=== PATIENT | female | born 1945 | race Caucasian/White ===

== ENCOUNTER 2016-12-09 15:06 | Observation (INO) ==
[2016-12-09] MEDS: 0.9 % Sodium Chloride 1,000 ML IVC SCH ×4 (15:44→20:20)
--- NOTE | 2016-12-09 15:48 | Emergency Department Note ---
Disposition Clinical Impression: Urinary tract infection Qualifiers: Urinary tract infection type: acute cystitis Hematuria presence: without hematuria Qualified Code(s): N30.00 - Acute cystitis without hematuria Fever Qualifiers: Fever type: unspecified Qualified Code(s): R50.9 - Fever, unspecified Disposition: Admitted As Inpatient Condition: Good Referrals: Jolly Aponte, [employer] [Primary Care Provider] - Forms: ED Satisfaction Letter Time of Disposition: 18:20 Fall HPI - General Chief Complaint: ED Fall Stated Complaint: fall, legs shaking, jerking Time Seen by Provider: 12/09/16 15:30 Source: patient Mode of arrival: EMS Limitations: no limitations Nursing Notes Reviewed: Yes Vital Signs Reviewed: Yes - History of Present Illness HPI Narrative: 71-year-old white female presents via squad after falling in her kitchen. She states she has felt bad for 5 days. She has felt weak and lightheaded. She states several times she felt like she was going to "fall out". She states today while she was walking her kitchen she did "fall out". When asked if she was unconscious, she says she thinks so. She remembers feeling weak, lightheaded, and dizzy. They treated her back when she fell and has some pain in her lumbar area. He has had fever for a couple days, she has not documented a fever at home. She denies a cough. No abdominal pain. No vomiting or diarrhea. No frequency or urgency. Pt Subjective Complaint: fall Onset (ago): Just [employer] SUPPORT [employer]IST Fall From: standing Fall Witnessed: no Place Fall Occurred: home Loss of Consciousness: unsure Prolonged Down Time?: no Symptoms Prior to Fall: lightheadedness, dizziness Context: unknown Location of injury: back Severity: moderate Quality: sharp Associated symptoms (after fall): Reports: headache, weakness - Related Data Home Medications Medication Instructions Recorded Confirmed Aspirin 81 mg PO DAILY 05/02/15 12/09/16 Cetirizine HCl [Zyrtec] 10 mg PO DAILY 05/02/15 12/09/16 Citalopram [CeleXA] 20 mg PO DAILY 05/02/15 12/09/16 Levothyroxine [Synthroid] 100 mcg PO 0630 05/02/15 12/09/16 Meclizine [Antivert] 25 mg PO TID PRN 05/02/15 12/09/16 Nitroglycerin 1 tab SL PRN PRN 05/02/15 12/09/16 Oxybutynin [Ditropan] 5 mg PO BID 05/02/15 12/09/16 Pravastatin Sodium [Pravachol] 80 mg PO HS 05/02/15 12/09/16 Pregabalin [Lyrica] 50 mg PO BID 05/02/15 12/09/16 Ranitidine HCl [Zantac] 150 mg PO BID 05/02/15 12/09/16 Ticagrelor [Brilinta] 90 mg PO BID 05/02/15 12/09/16 TraMADol [Ultram] 50 mg PO Q6HR 05/02/15 12/09/16 Cholecalciferol (Vitamin D3) 1,000 unit PO DAILY 09/24/15 12/09/16 [Vitamin D] Oxygen 2 l .ROUTE AD 09/24/15 12/09/16 Previous Rx's Medication Instructions Recorded Pantoprazole Sodium [Protonix] 20 mg PO DAILY #30 tab 09/13/16 Clindamycin HCl [Cleocin HCl] 300 mg PO QID #40 cap 10/16/16 DiphenhydraMINE [Benadryl] 25 mg PO Q4HR #30 capsule 10/16/16 Allergies Allergy/AdvReac Type Severity Reaction Status Date / Time budesonide [From Symbicort] Allergy Swelling Verified 12/09/16 15:07 of Lip/Tongue/Throat carvedilol [From Coreg] Allergy Swelling Verified 12/09/16 15:07 of Lip/Tongue/Throat cephalexin [From Keflex] Allergy Swelling Verified 12/09/16 15:07 of Lip/Tongue/Throat ciprofloxacin [From Cipro] Allergy Anaphylaxis Verified 12/09/16 15:07 Formoterol [From Symbicort] Allergy Swelling Verified 12/09/16 15:07 of Lip/Tongue/Throat gabapentin [From Neurontin] Allergy Swelling Verified 12/09/16 15:07 of Lip/Tongue/Throat lisinopril Allergy Headache Verified 12/09/16 15:07 shellfish derived Allergy Anaphylaxis Verified 12/09/16 15:07 Sulfa (Sulfonamide Allergy Hives Verified 12/09/16 15:07 Antibiotics) sulfamethoxazole Allergy Hives Verified 12/09/16 15:07 [From Bactrim] trimethoprim [From Bactrim] Allergy Hives Verified 12/09/16 15:07 venom-honey bee Allergy Anaphylaxis Verified 12/09/16 15:07 [bee venom (honey bee)] IVP DYE Allergy Swelling Uncoded 12/09/16 15:07 of Lip/Tongue/Throat All systems ED: reviewed and negative except as stated. Constitutional: Reports: fever, chills Eyes: Denies: eye discharge (Subjective), vision change ENT ED: Denies: ear pain, throat pain Cardiovascular: Denies: chest pain Respiratory: Denies: cough, dyspnea, wheezes Gastrointestinal: Denies: abdominal pain, nausea, vomiting, diarrhea Genitourinary: Denies: urgency, dysuria, frequency Musculoskeletal: Reports: back pain. Denies: neck pain Integumentary: Denies: rash Neurological: Reports: headache (Earlier today, none now.), weakness. Denies: numbness, paresthesias Fall PMH - Past Medical History Medical history: Reports: asthma, CVA, fibromyalgia, hyperlipidemia, myocardial infarction, thyroid disease, TIA Surgical history: Reports: angioplasty/stent, cholecystectomy, JODY/BSO Psychiatric history: Reports: depression - Social History Smoking Status: Never smoker Alcohol use: Reports: none Drug use: Reports: none Physical Exam - General Limitations: no limitations General appearance: alert, in no apparent distress - Head Head exam: atraumatic, normocephalic - Eye Eye exam: Present: PERRL, EOMI. Absent: scleral icterus, conjunctival injection - ENT ENT exam: normal oropharynx, mucous membranes moist, TM's normal bilaterally - Neck Neck exam: Present: normal inspection, full ROM, trachea midline. Absent: tenderness, meningismus, lymphadenopathy - Chest Chest inspection: Present: normal inspection, symmetric chest wall rise. Absent : tenderness - Respiratory Respiratory exam: Present: normal lung sounds bilaterally. Absent: respiratory distress, wheezes - Cardiovascular Cardiovascular exam: Present: normal rhythm, tachycardia, normal heart sounds - Abdominal Exam Abdominal exam: Present: soft, Non-Tender - Extremities Exam Extremities exam: Present: normal inspection, full ROM, normal capillary refill. Absent: tenderness - Back Exam Back exam: Present: tenderness (Mid and lower lumbar and the midline). Absent: CVA tenderness (R), CVA tenderness (L), straight leg raise (R), straight leg raise (L) - Neurological Exam Neurological exam: Present: alert, oriented X3, CN II-XII intact. Absent: motor sensory deficit - Psychiatric Psychiatric exam: Present: normal affect, normal mood - Skin Skin exam: Present: warm, dry, intact, normal color Course Vital Signs Temperature 103.8 F H 12/09/16 15:08 Pulse Rate 107 12/09/16 15:08 Respiratory Rate 20 12/09/16 15:08 O2 Sat by Pulse Oximetry 93 12/09/16 15:08 Temperature 99.5 F 12/09/16 15:58 Pulse Rate 86 12/09/16 17:42 Respiratory Rate 20 12/09/16 17:42 Blood Pressure 125/73 12/09/16 17:42 O2 Sat by Pulse Oximetry 92 12/09/16 17:42 Oxygen Delivery Oxygen Delivery Nasal Cannula Fall - MDM Narrative Medical decision making narrative: Near syncope or syncope secondary to anemia, sepsis, febrile illness, cardiac arrhythmia, dehydration, electrolyte abnormality. There is no evidence of sepsis, her lactic acid is normal. Her tachycardia improved with treatment of her fever. She does have urinary tract infection. Due to her multiple antibiotic allergies we used gentamicin. I discussed the case with the hospitalist, Dr. Bianchi. He has accepted the patient for admission. Her history is not clear that she actually ever had a syncopal episode. It sounds as if she was weak and dizzy. She remembers all the events of the nearly passing out or falling. She has no acute fractures or injuries to her lumbar spine. She has significant degenerative disease and spinal stenosis, but none of these are acute findings. - Lab Data Lab results reviewed: Yes I reviewed the patient's lab results. Result diagrams: 12/09/16 16:05 12/09/16 16:05 Lab Results 12/09/16 12/09/16 12/09/16 Range/Units 16:05 16:05 16:05 WBC 8.6 (4.3-11.1) K/mcL RBC 4.08 (3.82-4.97) M/mcL Hgb 12.3 (11.5-15.4) g/dL Hct 36.3 (35.3-44.9) % MCV 89.0 (83.0-100.0) fL MCH 30.1 (28.0-33.3) pg MCHC 33.9 (31.6-35.5) g/dL RDW 13.3 (11.5-14.5) % Plt Count 195 (140-400) K/mcL MPV 10.3 (9.4-12.4) fL Immature Gran % 0.3 (0-4) % Seg Neutrophils % 74.1 % Lymphocytes % 12.6 % Monocytes % 11.9 % Eosinophils % 0.6 % Basophils % 0.5 % Neutrophils # 6.4 (1.6-8.9) K/mcL Lymphocytes # 1.1 (0.6-4.6) K/mcL Monocytes # 1.0 (0.0-1.3) K/mcL Eosinophils # 0.1 (0.0-0.6) K/mcL Basophils # 0.0 (0.0-0.2) K/mcL PT (9.4-12.1) Seconds INR VBG Lactic Acid (0.5-2.2) mmol/L Sodium 135 L (136-145) mEq/L Potassium 4.1 (3.5-4.5) mEq/L Chloride 101 (98-109) mEq/L Carbon Dioxide 24 (19-29) mEq/L BUN 18 (7-20) mg/dL Creatinine 1.17 H (0.57-1.11) mg/dL Est GFR ( Amer) 55 L (> 60) Est GFR (Non-Af Amer) 45 L (> 60) BUN/Creatinine Ratio 15 (6-26) Glucose 114 H (70-99) mg/dL Calculated Osmolality 283 (280-300) Calcium 8.9 (8.6-10.8) mg/dL Total Bilirubin 0.6 (0.2-1.2) mg/dL AST 22 (5-34) Units/L ALT 21 (0-55) Units/L Alkaline Phosphatase 63 (38-126) Units/L Troponin I 0.03 (0-0.03) ng/mL Serum Total Protein 7.3 (6.0-8.3) g/dL Albumin 3.4 L (3.5-5.0) g/dL Globulin 3.9 H (2.4-3.5) g/dL Albumin/Globulin Ratio 0.9 L (1.1-2.2) Urine Color (Yellow) Urine Clarity (Clear) Urine pH (5.0-8.0) pH Units Ur Specific [place] (1.010-1.025) Urine Protein (Neg-Trace) mg/dL Urine Glucose (UA) (Normal) mg/dL Urine Ketones (Negative) mg/dL Urine Blood (Negative) Urine Nitrite (Negative) Urine Bilirubin (Negative) Urine Urobilinogen (Normal) mg/dL Ur Leukocyte Esterase (Negative) Urine Microscopic RBC (0-3) per hpf Urine Microscopic WBC (0-3) per hpf Ur Squamous Epith Cells (None-Few) per lpf Ur Renal Epithelial Cell (None-Few) per hpf Urine Bacteria (None-Few) per hpf Ur Culture Indicated? (NO) 12/09/16 12/09/16 12/09/16 Range/Units 16:05 16:05 16:20 WBC (4.3-11.1) K/mcL RBC (3.82-4.97) M/mcL Hgb (11.5-15.4) g/dL Hct (35.3-44.9) % MCV (83.0-100.0) fL MCH (28.0-33.3) pg MCHC (31.6-35.5) g/dL RDW (11.5-14.5) % Plt Count (140-400) K/mcL MPV (9.4-12.4) fL Immature Gran % (0-4) % Seg Neutrophils % % Lymphocytes % % Monocytes % % Eosinophils % % Basophils % % Neutrophils # (1.6-8.9) K/mcL Lymphocytes # (0.6-4.6) K/mcL Monocytes # (0.0-1.3) K/mcL Eosinophils # (0.0-0.6) K/mcL Basophils # (0.0-0.2) K/mcL PT 11.8 (9.4-12.1) Seconds INR 1.1 VBG Lactic Acid 0.9 (0.5-2.2) mmol/L Sodium (136-145) mEq/L Potassium (3.5-4.5) mEq/L Chloride (98-109) mEq/L Carbon Dioxide (19-29) mEq/L BUN (7-20) mg/dL Creatinine (0.57-1.11) mg/dL Est GFR ( Amer) (> 60) Est GFR (Non-Af Amer) (> 60) BUN/Creatinine Ratio (6-26) Glucose (70-99) mg/dL Calculated Osmolality (280-300) Calcium (8.6-10.8) mg/dL Total Bilirubin (0.2-1.2) mg/dL AST (5-34) Units/L ALT (0-55) Units/L Alkaline Phosphatase (38-126) Units/L Troponin I (0-0.03) ng/mL Serum Total Protein (6.0-8.3) g/dL Albumin (3.5-5.0) g/dL Globulin (2.4-3.5) g/dL Albumin/Globulin Ratio (1.1-2.2) Urine Color Light Yellow (Yellow) Urine Clarity Slightly Cloudy A (Clear) Urine pH 6.5 (5.0-8.0) pH Units Ur Specific [place] 1.010 (1.010-1.025) Urine Protein Negative (Neg-Trace) mg/dL Urine Glucose (UA) Normal (Normal) mg/dL Urine Ketones Negative (Negative) mg/dL Urine Blood Trace-intact H (Negative) Urine Nitrite Positive A (Negative) Urine Bilirubin Negative (Negative) Urine Urobilinogen Normal (Normal) mg/dL Ur Leukocyte Esterase Small H (Negative) Urine Microscopic RBC 0-3 (0-3) per hpf Urine Microscopic WBC 30-50 H (0-3) per hpf Ur Squamous Epith Cells Few (None-Few) per lpf Ur Renal Epithelial Cell Moderate H (None-Few) per hpf Urine Bacteria Many H (None-Few) per hpf Ur Culture Indicated? YES A (NO) - Radiology Data Radiology results reviewed: Yes I reviewed the patient's radiology results. ITS Impressions Chest X-Ray 12/09/16 15:38 IMPRESSION: No acute process. D/ / Familia Champagne MD / Familia Champagne MD Interpreting Provider: Familia Champagne MD Head CT 12/09/16 15:38 IMPRESSION: 1. Stable head CT. No acute intracranial abnormality. 2. Stable ventriculomegaly which is out of proportion to the degree of brain parenchymal volume loss. Findings raise the possibility for underlying normal pressure hydrocephalus for which clinical correlation is recommended. D/ / Vasile Graham MD / Vasile Graham MD Interpreting Provider: Vasile Graham MD Lumbar Spine CT 12/09/16 15:38 IMPRESSION: 1. No acute finding in the lumbar spine. 2. Severe spinal canal stenosis at L3-4 and L4-5 with additional degenerative changes described above. D/ / Luis Crespo MD / Luis Crespo MD Interpreting Provider: Luis Crespo MD
[2016-12-09 16:14] LABS: Basophils % 0.5 %; Eosinophils # 0.1 K/mcL (0.0-0.6); Eosinophils % 0.6 %; Hematocrit 36.3 % (35.3-44.9); Hemoglobin 12.3 g/dL (11.5-15.4); Immature Granulocytes % 0.3 % (0-4); Lymphocytes # 1.1 K/mcL (0.6-4.6); Lymphocytes % 12.6 %; Mean Corpuscular HGB Conc 33.9 g/dL (31.6-35.5); Mean Corpuscular Hemoglobin 30.1 pg (28.0-33.3); Mean Platelet Volume 10.3 fL (9.4-12.4); Monocytes % 11.9 %; Neutrophils # 6.4 K/mcL (1.6-8.9); Platelet Count 195 K/mcL (140-400); Red Blood Count 4.08 M/mcL (3.82-4.97); Red Cell Distribution Width 13.3 % (11.5-14.5); Segmented Neutrophils % 74.1 %
[2016-12-09 16:20] LABS: INR 1.1; Prothrombin Time 11.8 Seconds (9.4-12.1)
[2016-12-09 16:31] LABS: Bilirubin,Urine Negative (Negative); Blood,Urine Trace-intact (Negative); Clarity,Urine Slightly Cloudy (Clear); Glucose,Urine (UA) Normal (Normal); Ketones,Urine Negative (Negative); Leukocyte Esterase,Urine Small (Negative); Nitrite,Urine Positive (Negative); PH,Urine 6.5 pH Units (5.0-8.0); Protein,Urine Negative (Neg-Trace); Urobilinogen,Urine Normal (Normal)
[2016-12-09 16:32] LABS: Albumin 3.4 g/dL (3.5-5.0); Albumin/Globulin Ratio 0.9 (1.1-2.2); Bilirubin,Total 0.6 mg/dL (0.2-1.2); Calcium 8.9 mg/dL (8.6-10.8); Globulin 3.9 g/dL (2.4-3.5); Potassium 4.1 mEq/L (3.5-4.5); Total Protein 7.3 g/dL (6.0-8.3)
[2016-12-09 16:34] LABS: Color,Urine Light Yellow (Yellow)
[2016-12-09 16:38] LABS: Bacteria,Urine Many per hpf (None-Few); RBC,Urine 0-3 per hpf (0-3); Renal Epithelial Cells,Urine Moderate per hpf (None-Few); Squamous Epithelial Cell,Urine Few per lpf (None-Few); WBC,Urine 30-50 per hpf (0-3)
[2016-12-09] MEDS ORDERED: Gentamicin 80 MG in 0.9 % Sodium Chloride 100 ML IVPB ONE (17:09)
[2016-12-09] MEDS ORDERED: Nitroglycerin 0.4 MG TAB.SUBL SL SCH (18:35)
[2016-12-09] MEDS ORDERED: Ondansetron 4 MG/2 ML VIAL IVP PRN (18:35)
[2016-12-09] MEDS ORDERED: Ondansetron ODT 4 MG TAB.RAPDIS SL PRN (18:35)
[2016-12-09] MEDS ORDERED: NON-FORMULARY MEDICATION 1 EACH EACH (Oxygen [Oxygen] 2 L) SCH (18:35)
[2016-12-09] MEDS ORDERED: Naloxone 0.4 MG/ML INJ IVP PRN (18:35)
[2016-12-09] MEDS ORDERED: Gentamicin 0 MG in 0.9 % Sodium Chloride 100 ML IVPB SCH (19:00)
[2016-12-09] MEDS: Acetaminophen 325 MG TABLET PO PRN (20:20)
[2016-12-09] MEDS: Pregabalin 50 MG CAPSULE PO SCH (20:21)
[2016-12-09] MEDS: *HR* Ticagrelor 90 MG TABLET PO SCH (20:21)
[2016-12-09] MEDS: Famotidine 20 MG TABLET PO SCH (20:21)
[2016-12-10] MEDS: traMADol 50 MG TABLET PO SCH ×4 (00:15→18:33)
[2016-12-10] MEDS ORDERED: Nitroglycerin 0.4 MG TAB.SUBL SL PRN (03:34)
[2016-12-10] MEDS: 0.9 % Sodium Chloride 1,000 ML IVC SCH (04:50)
[2016-12-10] MEDS: Pregabalin 50 MG CAPSULE PO SCH ×2 (07:50→20:30)
[2016-12-10] MEDS: *HR* Ticagrelor 90 MG TABLET PO SCH ×2 (07:51→20:30)
[2016-12-10] MEDS: Aspirin 81 MG TAB.CHEW PO SCH (07:52)
[2016-12-10] MEDS: Famotidine 20 MG TABLET PO SCH ×2 (07:52→20:30)
[2016-12-10] MEDS: Cholecalciferol (D-3) 1,000 UNIT TABLET PO SCH (07:52)
[2016-12-10] MEDS ORDERED: Loratadine 10 MG TABLET PO SCH (09:00)
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
[2016-12-10] MEDS: Oxymetazoline Nasal SPRAY BOTTLE NS SCH (18:34)
[2016-12-11] MEDS: traMADol 50 MG TABLET PO SCH ×3 (02:51→12:33)
[2016-12-11 06:11] LABS: Basophils % 0.3 %; Eosinophils # 0.1 K/mcL (0.0-0.6); Eosinophils % 1.3 %; Hematocrit 36.4 % (35.3-44.9); Immature Granulocytes % 0.5 % (0-4); Lymphocytes # 1.4 K/mcL (0.6-4.6); Lymphocytes % 23.4 %; Mean Corpuscular Hemoglobin 29.6 pg (28.0-33.3); Mean Corpuscular Volume 89.7 fL (83.0-100.0); Mean Platelet Volume 10.3 fL (9.4-12.4); Monocytes # 0.8 K/mcL (0.0-1.3); Neutrophils # 3.6 K/mcL (1.6-8.9); Platelet Count 156 K/mcL (140-400); Red Blood Count 4.06 M/mcL (3.82-4.97); Red Cell Distribution Width 13.2 % (11.5-14.5); Segmented Neutrophils % 60.5 %
[2016-12-11] MEDS: Oxymetazoline Nasal SPRAY BOTTLE NS SCH (06:11)
[2016-12-11 06:23] LABS: BUN/Creatinine Ratio 15 (6-26); Blood Urea Nitrogen 16 mg/dL (7-20); Calcium 9.1 mg/dL (8.6-10.8); Carbon Dioxide 23 mEq/L (19-29); Chloride 104 mEq/L (98-109); Glucose 149 mg/dL (70-99); Osmolality,Calculated 290 (280-300); Potassium 4.2 mEq/L (3.5-4.5); Sodium 138 mEq/L (136-145); eGFR For African Americans > 60 (> 60); eGFR For Non-African Americans 50 (> 60)
[2016-12-11] MEDS: Acetaminophen 325 MG TABLET PO PRN (08:08)
[2016-12-11] MEDS: Famotidine 20 MG TABLET PO SCH (08:09)
[2016-12-11] MEDS: Aspirin 81 MG TAB.CHEW PO SCH (08:09)
[2016-12-11] MEDS: Pregabalin 50 MG CAPSULE PO SCH (08:09)
[2016-12-11] MEDS: Cholecalciferol (D-3) 1,000 UNIT TABLET PO SCH (08:10)
[2016-12-11] MEDS: *HR* Ticagrelor 90 MG TABLET PO SCH (08:10)
[2016-12-11 08:30] LABS: Acinetobacter baumannii by PCR Not Detected (Not Detect); Candida albicans by PCR Not Detected (Not Detect); Candida glabrata by PCR Not Detected (Not Detect); Candida krusei by PCR Not Detected (Not Detect); Candida parapsilosis by PCR Not Detected (Not Detect); Candida tropicalis by PCR Not Detected (Not Detect); Enterococcus by PCR Not Detected (Not Detect); Klebsiella oxytoca by PCR Not Detected (Not Detect); Klebsiella pneumoniae by PCR Not Detected (Not Detect); Pseudomonas aeruginosa by PCR Not Detected (Not Detect); Serratia marcescens by PCR Not Detected (Not Detect); Staphylococcus aureus by PCR Not Detected (Not Detect); Streptococcus agalactiae(B)PCR Not Detected (Not Detect); Streptococcus by PCR Not Detected (Not Detect); Streptococcus pneumoniae PCR Not Detected (Not Detect); Streptococcus pyogenes (A) PCR Not Detected (Not Detect); blaKPC Carbapenem-Resist Gene Not Detected (Not Detect)
[2016-12-11 08:31] LABS: Escherichia coli by PCR ***DETECTED*** (Not Detect)
--- NOTE | 2016-12-11 15:35 | Discharge Summary ---
Date of Encounter: 12/11/16 Time of Encounter: 15:25 - Discharge Diagnosis (1) Syncope Priority: Primary Status: Acute Qualifiers: Syncope type: unspecified Qualified Code(s): R55 - Syncope and collapse (2) CKD (chronic kidney disease) stage 3, GFR 30-59 ml/min Priority: Secondary Status: Chronic (3) Urinary tract infection Priority: Secondary Status: Acute Qualifiers: Urinary tract infection type: acute cystitis Hematuria presence: without hematuria Qualified Code(s): N30.00 - Acute cystitis without hematuria - Discharge Medications Prescriptions: Amoxicillin/Clavulanate [Augmentin] 875 mg PO BIDWM #6 tablet Lactobacillus [Culturelle] 1 each PO BID #6 cap.sprink Home Medications: Aspirin 81 mg PO DAILY 05/02/15 [History] Citalopram [CeleXA] 20 mg PO DAILY 05/02/15 [History] Levothyroxine [Synthroid] 100 mcg PO 0630 05/02/15 [History] Meclizine [Antivert] 25 mg PO TID PRN 05/02/15 [History] Nitroglycerin 1 tab SL PRN PRN 05/02/15 [History] Oxybutynin [Ditropan] 5 mg PO BID 05/02/15 [History] Pravastatin Sodium [Pravachol] 80 mg PO HS 05/02/15 [History] Pregabalin [Lyrica] 50 mg PO BID 05/02/15 [History] Ranitidine HCl [Zantac] 150 mg PO BID 05/02/15 [History] Ticagrelor [Brilinta] 90 mg PO BID 05/02/15 [History] TraMADol [Ultram] 50 mg PO Q6HR 05/02/15 [History] Cholecalciferol (Vitamin D3) [Vitamin D3] 1,000 unit PO DAILY 09/24/15 [History] Oxygen 2 l .ROUTE AD 09/24/15 [History] Pantoprazole Sodium [Protonix] 20 mg PO DAILY #30 tab 09/13/16 [Rx] DiphenhydraMINE [Benadryl] 25 mg PO Q4HR #30 capsule 10/16/16 [Rx] Amoxicillin/Clavulanate [Augmentin] 875 mg PO BIDWM #6 tablet 12/11/16 [Rx] Lactobacillus [Culturelle] 1 each PO BID #6 capliset 12/11/16 [Rx] Allergies/Adverse Reactions: Allergies budesonide [From Symbicort] Allergy (Verified 12/09/16 15:07) Swelling of Lip/Tongue/Throat carvedilol [From Coreg] Allergy (Verified 12/09/16 15:07) Swelling of Lip/Tongue/Throat cephalexin [From Keflex] Allergy (Verified 12/09/16 15:07) Swelling of Lip/Tongue/Throat ciprofloxacin [From Cipro] Allergy (Verified 12/09/16 15:07) Anaphylaxis Formoterol [From Symbicort] Allergy (Verified 12/09/16 15:07) Swelling of Lip/Tongue/Throat gabapentin [From Neurontin] Allergy (Verified 12/09/16 15:07) Swelling of Lip/Tongue/Throat lisinopril Allergy (Verified 12/09/16 15:07) Headache shellfish derived Allergy (Verified 12/09/16 15:07) Anaphylaxis Sulfa (Sulfonamide Antibiotics) Allergy (Verified 12/09/16 15:07) Hives sulfamethoxazole [From Bactrim] Allergy (Verified 12/09/16 15:07) Hives trimethoprim [From Bactrim] Allergy (Verified 12/09/16 15:07) Hives venom-honey bee [bee venom (honey bee)] Allergy (Verified 12/09/16 15:07) Anaphylaxis IVP DYE Allergy (Uncoded 12/09/16 15:07) Swelling of Lip/Tongue/Throat Date of admission: 12/09/16 18:27 Primary care physician: Jolly Aponte CNP Consults: 12/11/16 10:53 Consult to Occupational Therapy [CONS] Routine Comment: Evaluate, develop and implement POC Reason for Consult: Instability on walking Consult to Physical Therapy [CONS] Routine Comment: Evaluate, develop and implement POC Reason for Consult: Instability on walking - Patient Status Disposition: Home Health Service Condition: Good Functional capacity at discharge: uses cane/walker Overall status at discharge: patient is progressing back to baseline - Discharge Instructions Follow Up With: Jolly Aponte CNP [Primary Care Provider] - 1 week - Diet and Activity Activity: resume usual activities as tolerated Diet: advance to your usual diet Hospital course: Ms. Solis is a 71 year old female who came to emergency room stating she had a syncopal episode with fall at home rocks mentally 5 PM while ambulating in her house. She was unable to get up but was able to use her Lif[employer] button to call for help. She was brought emergency room and evaluated and admitted to [facility] for ongoing care needs. Initial orders were written by the emergency room physician. I saw her on December 10 and performed a history and physical. She had no further syncopal or near- syncopal episodes. The etiology of her syncope was not determined with certainty. Orthostatic vital signs will be checked prior to discharge. Follow-up lab work showed renal function improved with BUN and creatinine being 16 and 1.0 respectively on the day of discharge with estimated GFR grater than 50. B12 level was normal at 415. She was started empirically on Augmentin for UTI. Urine culture and blood culture returned showing Escherichia coli with sensitivity to Augmentin. She will continue this for 3 additional days at home with Lactobacillus also. She had physical therapy next and occupational therapy evaluations prior to discharge. It was recommend she use her walkers and canes at home regularly. She will have home health services provided at discharge. On December 11 she felt improved and stable for discharge. She will follow with her PCP Jolly Aponte CMP within 1 week. - Time Spent with Patient Total time spent providing and/or coordinating discharge services: - Constitutional Vitals: Temp Pulse Resp BP Pulse Ox 98.0 F 64 16 118/64 98 12/11/16 14:05 12/11/16 15:07 12/11/16 15:07 12/11/16 15:07 12/11/16 15:07
[2016-12-11 15:48] VITALS: BP 153/82
--- NOTE | 2016-12-11 16:05 | Physician Discharge Referral ---
Home Health/Hosp Referral Info Transfer to: Home Health Attending Provider: Arias Provider in Charge Post Discharge: PCP (Jolly Aponte CNP) - Diagnosis (1) Syncope Priority: Primary Status: Acute (2) CKD (chronic kidney disease) stage 3, GFR 30-59 ml/min Priority: Secondary Status: Chronic (3) Urinary tract infection Priority: Secondary Status: Acute - Respiratory Orders Smoking Cessation: Smoking cessation has been advised. For more information, call the [place] Tobacco Quit Line at 8-068-REPM-NOW. - Diet/Nutrition Diet/Nutrition Orders: Regular - Activity Activity Orders: Walker - Services Needed Following services are medically necessary services: Nursing, Home Health Aide, Physical Therapy, Occupational Therapy - Transfer Medications Prescriptions: Amoxicillin/Clavulanate [Augmentin] 875 mg PO BIDWM #6 tablet Lactobacillus [Culturelle] 1 each PO BID #6 cap.sprink Home Medications: Aspirin 81 mg PO DAILY 05/02/15 [History] Citalopram [CeleXA] 20 mg PO DAILY 05/02/15 [History] Levothyroxine [Synthroid] 100 mcg PO 0630 05/02/15 [History] Meclizine [Antivert] 25 mg PO TID PRN 05/02/15 [History] Nitroglycerin 1 tab SL PRN PRN 05/02/15 [History] Oxybutynin [Ditropan] 5 mg PO BID 05/02/15 [History] Pravastatin Sodium [Pravachol] 80 mg PO HS 05/02/15 [History] Pregabalin [Lyrica] 50 mg PO BID 05/02/15 [History] Ranitidine HCl [Zantac] 150 mg PO BID 05/02/15 [History] Ticagrelor [Brilinta] 90 mg PO BID 05/02/15 [History] TraMADol [Ultram] 50 mg PO Q6HR 05/02/15 [History] Cholecalciferol (Vitamin D3) [Vitamin D3] 1,000 unit PO DAILY 09/24/15 [History] Oxygen 2 l .ROUTE AD 09/24/15 [History] Pantoprazole Sodium [Protonix] 20 mg PO DAILY #30 tab 09/13/16 [Rx] DiphenhydraMINE [Benadryl] 25 mg PO Q4HR #30 capsule 10/16/16 [Rx] Amoxicillin/Clavulanate [Augmentin] 875 mg PO BIDWM #6 tablet 12/11/16 [Rx] Lactobacillus [Culturelle] 1 each PO BID #6 cap.sprink 12/11/16 [Rx] Allergies/Adverse Reactions: Allergies budesonide [From Symbicort] Allergy (Verified 12/09/16 15:07) Swelling of Lip/Tongue/Throat carvedilol [From Coreg] Allergy (Verified 12/09/16 15:07) Swelling of Lip/Tongue/Throat cephalexin [From Keflex] Allergy (Verified 12/09/16 15:07) Swelling of Lip/Tongue/Throat ciprofloxacin [From Cipro] Allergy (Verified 12/09/16 15:07) Anaphylaxis Formoterol [From Symbicort] Allergy (Verified 12/09/16 15:07) Swelling of Lip/Tongue/Throat gabapentin [From Neurontin] Allergy (Verified 12/09/16 15:07) Swelling of Lip/Tongue/Throat lisinopril Allergy (Verified 12/09/16 15:07) Headache shellfish derived Allergy (Verified 12/09/16 15:07) Anaphylaxis Sulfa (Sulfonamide Antibiotics) Allergy (Verified 12/09/16 15:07) Hives sulfamethoxazole [From Bactrim] Allergy (Verified 12/09/16 15:07) Hives trimethoprim [From Bactrim] Allergy (Verified 12/09/16 15:07) Hives venom-honey bee [bee venom (honey bee)] Allergy (Verified 12/09/16 15:07) Anaphylaxis IVP DYE Allergy (Uncoded 12/09/16 15:07) Swelling of Lip/Tongue/Throat Certification: Further, I certify that my clinical findings support that this patient is homebound (i.e. 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
== END 2016-12-11 16:22 | disposition home health service (06) ==
LOC: INPPIK 15:06 → EMEROOPIK 15:06 → INPPIK 18:45
PROVIDERS: ADMIT Internal Medicine; ATTEND Internal Medicine

== ENCOUNTER 2020-04-18 14:18 | Observation (INO) ==
[2020-04-18 14:57] LABS: Basophils % 0.6 %; Eosinophils # 0.1 K/mcL (0.0-0.6); Eosinophils % 1.9 %; Hematocrit 38.5 % (35.3-44.9); Hemoglobin 12.7 g/dL (11.5-15.4); Immature Granulocytes % 0.3 % (0-4); Lymphocytes # 1.5 K/mcL (0.6-4.6); Lymphocytes % 24.1 %; Mean Corpuscular Hemoglobin 30.2 pg (28.0-33.3); Mean Corpuscular Volume 91.7 fL (83.0-100.0); Mean Platelet Volume 10.2 fL (9.4-12.4); Monocytes # 0.7 K/mcL (0.0-1.3); Monocytes % 10.7 %; Platelet Count 277 K/mcL (140-400); Red Cell Distribution Width 13.1 % (11.5-14.5); Segmented Neutrophils % 62.4 %; White Blood Count 6.4 K/mcL (4.3-11.1)
[2020-04-18 15:01] LABS: Prothrombin Time 11.1 Seconds (9.4-12.1)
[2020-04-18 15:04] LABS: Activated Partial Thrombo Time 31.1 Seconds (26.0-36.0)
[2020-04-18 15:08] LABS: BUN/Creatinine Ratio 18 (6-26); Blood Urea Nitrogen 24 mg/dL (8-23); Calcium 9.3 mg/dL (8.6-10.3); Carbon Dioxide 28 mEq/L (23-29); Chloride 103 mEq/L (98-107); Glucose 139 mg/dL (70-105); Osmolality,Calculated 294 (280-300); Potassium 4.8 mEq/L (3.5-5.1); Sodium 139 mEq/L (136-145); eGFR For African Americans 46 (> 60); eGFR For Non-African Americans 38 (> 60)
[2020-04-18 15:13] LABS: Troponin I < 0.03 ng/mL (< 0.04)
[2020-04-18 15:27] LABS: Albumin/Globulin Ratio 1.2 (1.1-2.2); Bilirubin,Indirect 0.3 mg/dL (0.0-1.0); Bilirubin,Total 0.3 mg/dL (0.3-1.0); Globulin 3.4 g/dL (2.4-3.5); Total Protein 7.4 g/dL (6.4-8.9)
[2020-04-18] MEDS ORDERED: Perflutren Lipid Microsphere 1.3 ML in 0.9 % Sodium Chloride 8.7 ML IVP PRN (16:01)
[2020-04-18] MEDS ORDERED: Acetaminophen 325 MG TABLET PO PRN (16:03)
[2020-04-18] MEDS ORDERED: Naloxone 0.4 MG/ML INJ IVP PRN (16:03)
[2020-04-18] MEDS ORDERED: MOM Conc 10 ML UD.LIQ PO PRN (16:03)
[2020-04-18] MEDS ORDERED: Ondansetron 4 MG/2 ML VIAL IVP PRN (16:03)
[2020-04-18] MEDS ORDERED: Mag Hydrox/Al Hydrox/Simeth 30 ML UDC PO PRN (16:03)
[2020-04-18] MEDS ORDERED: Albuterol 2.5 MG/3 ML NEBULIZER IH PRN (16:14)
[2020-04-18] MEDS ORDERED: Dextrose Gel 15 GM/37.5 ML TUBE PO PRN ×2 (16:40)
[2020-04-18] MEDS ORDERED: D5% in Water 1,000 ML IVC PRN (16:40)
[2020-04-18] MEDS ORDERED: *HR* Dextrose 50 % in Water (Vial) 50 ML VIAL IVP PRN (16:40)
[2020-04-18] MEDS ORDERED: Nitroglycerin 0.4 MG TAB.SUBL SL PRN (18:06)
[2020-04-18] MEDS ORDERED: Fluticasone Propionate Nasal 50 MCG/SPRAY BOTTLE NS PRN (18:33)
[2020-04-18] MEDS: Aspirin Enteric Coated 81 MG Tablet PO SCH (20:01)
[2020-04-18] MEDS: Pregabalin 75 MG CAPSULE PO SCH (20:01)
[2020-04-18] MEDS: *HR* Ticagrelor 90 MG TABLET PO SCH (20:01)
[2020-04-18] MEDS ORDERED: Insulin LISPRO 300 UNITS/3 ML VIAL SQ SCH (21:00)
[2020-04-19 06:24] LABS: Basophils % 0.7 %; Eosinophils # 0.2 K/mcL (0.0-0.6); Hematocrit 36.6 % (35.3-44.9); Hemoglobin 12.1 g/dL (11.5-15.4); Immature Granulocytes % 0.6 % (0-4); Lymphocytes # 1.6 K/mcL (0.6-4.6); Lymphocytes % 29.6 %; Mean Corpuscular HGB Conc 33.1 g/dL (31.6-35.5); Mean Corpuscular Hemoglobin 30.3 pg (28.0-33.3); Mean Corpuscular Volume 91.7 fL (83.0-100.0); Mean Platelet Volume 10.7 fL (9.4-12.4); Monocytes # 0.7 K/mcL (0.0-1.3); Monocytes % 12.4 %; Neutrophils # 2.9 K/mcL (1.6-8.9); Platelet Count 265 K/mcL (140-400); Red Blood Count 3.99 M/mcL (3.82-4.97); Red Cell Distribution Width 12.8 % (11.5-14.5); Segmented Neutrophils % 53.7 %; White Blood Count 5.3 K/mcL (4.3-11.1)
[2020-04-19 06:34] VITALS: BP 142/73
[2020-04-19 06:43] LABS: Calcium 9.1 mg/dL (8.6-10.3); Chol/HDL Ratio 4.5 (0-4.9); Potassium 4.2 mEq/L (3.5-5.1)
[2020-04-19] MEDS: Insulin LISPRO 300 UNITS/3 ML VIAL SQ SCH ×3 (08:15→16:54)
[2020-04-19] MEDS: Aspirin Enteric Coated 81 MG Tablet PO SCH (08:37)
[2020-04-19] MEDS: *HR* Ticagrelor 90 MG TABLET PO SCH (08:37)
[2020-04-19] MEDS: Pregabalin 75 MG CAPSULE PO SCH (08:38)
[2020-04-19] MEDS ORDERED: Isosorbide MONOnitrate (24 HR) 30 MG TAB.ER.24H PO SCH (09:00)
[2020-04-19 09:14] LABS: Estimated Average Glucose 154 mg/dl
== END 2020-04-19 17:24 | disposition home health service (06) ==
LOC: EMEROOPIK 14:18 → INPPIK 14:18
PROVIDERS: ADMIT Family Medicine; ATTEND Family Medicine

== ENCOUNTER 2021-12-03 11:15 | Observation (INO) ==
[2021-12-03 12:48] LABS: Hematocrit 39.5 % (35.3-44.9); Hemoglobin 12.9 g/dL (11.5-15.4); Mean Corpuscular HGB Conc 32.7 g/dL (31.6-35.5); Mean Corpuscular Hemoglobin 29.8 pg (28.0-33.3); Mean Corpuscular Volume 91.2 fL (83.0-100.0); Mean Platelet Volume 9.7 fL (9.4-12.4); Platelet Count 238 K/mcL (140-400); Red Blood Count 4.33 M/mcL (3.82-4.97); Red Cell Distribution Width 13.2 % (11.5-14.5); White Blood Count 7.7 K/mcL (4.3-11.1)
[2021-12-03 12:55] LABS: INR 1.1; Prothrombin Time 11.9 Seconds (9.4-12.1)
[2021-12-03 13:07] LABS: BUN/Creatinine Ratio 24 (6-26); Blood Urea Nitrogen 25 mg/dL (8-23); Calcium 9.5 mg/dL (8.6-10.3); Carbon Dioxide 26 mEq/L (23-29); Chloride 99 mEq/L (98-107); Glucose 132 mg/dL (70-105); Osmolality,Calculated 280 (280-300); Potassium 4.2 mEq/L (3.5-5.1); Sodium 132 mEq/L (136-145); eGFR For African Americans > 60 (> 60); eGFR For Non-African Americans 50 (> 60)
[2021-12-03 13:08] LABS: Troponin I < 0.03 ng/mL (< 0.04)
[2021-12-03 16:09] LABS: Bilirubin,Urine Negative (Negative); Blood,Urine Negative (Negative); Clarity,Urine Clear (Clear); Color,Urine Yellow (Yellow); Glucose,Urine (UA) Normal (Normal); Ketones,Urine Negative (Negative); Leukocyte Esterase,Urine Negative (Negative); Nitrite,Urine Negative (Negative); Protein,Urine Negative (Neg-Trace); Specific Gravity,Urine <= 1.005 (1.010-1.025); Urobilinogen,Urine Normal (Normal)
[2021-12-03] MEDS ORDERED: Aspirin 325 MG TABLET PO ONE (16:23)
[2021-12-03] MEDS ORDERED: Naloxone 0.4 MG/ML INJ IVP PRN (16:26)
[2021-12-03] MEDS ORDERED: Nitroglycerin 0.4 MG TAB.SUBL SL PRN (16:39)
[2021-12-03] MEDS: Acetaminophen 325 MG TABLET PO SCH (21:29)
[2021-12-03] MEDS: gemfibroziL 600 MG TABLET PO SCH (21:29)
[2021-12-03] MEDS: *HR* Ticagrelor 90 MG TABLET PO SCH (21:29)
[2021-12-03] MEDS: DICLOFENAC SODIUM TP SCH (21:30)
[2021-12-04 06:43] LABS: Basophils # 0.1 K/mcL (0.0-0.2); Basophils % 0.9 %; Eosinophils # 0.3 K/mcL (0.0-0.6); Eosinophils % 4.6 %; Hematocrit 38.9 % (35.3-44.9); Hemoglobin 12.8 g/dL (11.5-15.4); Immature Granulocytes % 0.7 % (0-4); Lymphocytes # 1.3 K/mcL (0.6-4.6); Lymphocytes % 22.6 %; Mean Corpuscular HGB Conc 32.9 g/dL (31.6-35.5); Mean Corpuscular Hemoglobin 29.6 pg (28.0-33.3); Mean Platelet Volume 9.8 fL (9.4-12.4); Monocytes # 0.6 K/mcL (0.0-1.3); Neutrophils # 3.5 K/mcL (1.6-8.9); Platelet Count 236 K/mcL (140-400); Red Blood Count 4.32 M/mcL (3.82-4.97); Red Cell Distribution Width 13.4 % (11.5-14.5); Segmented Neutrophils % 61.2 %; White Blood Count 5.7 K/mcL (4.3-11.1)
[2021-12-04] MEDS: *HR* Enoxaparin 40 MG/0.4 ML SYRINGE SQ SCH (07:48)
[2021-12-04 08:07] LABS: Calcium 9.2 mg/dL (8.6-10.3); Chol/HDL Ratio 3.4 (0-4.9); Magnesium 1.8 mg/dL (1.6-2.6); Potassium 4.4 mEq/L (3.5-5.1)
[2021-12-04] MEDS: Acetaminophen 325 MG TABLET PO SCH ×2 (09:16→19:59)
[2021-12-04] MEDS: Isosorbide MONOnitrate (24 HR) 30 MG TAB.ER.24H PO SCH (09:16)
[2021-12-04] MEDS: *HR* Ticagrelor 90 MG TABLET PO SCH ×2 (09:16→19:59)
[2021-12-04] MEDS: DICLOFENAC SODIUM TP SCH (09:17)
[2021-12-04] MEDS: Aspirin Enteric Coated 81 MG Tablet PO SCH (09:17)
[2021-12-04] MEDS: gemfibroziL 600 MG TABLET PO SCH ×2 (09:17→16:12)
[2021-12-04] MEDS: Fluticasone Propionate Nasal 50 MCG/SPRAY BOTTLE NS SCH (09:17)
[2021-12-04] MEDS: Trolamine Salicylate/Aloe Vera 85 APPL/85 GM TUBE TP PRN (22:21)
[2021-12-05] MEDS: *HR* Enoxaparin 40 MG/0.4 ML SYRINGE SQ SCH (05:45)
[2021-12-05] MEDS: Isosorbide MONOnitrate (24 HR) 30 MG TAB.ER.24H PO SCH (08:08)
[2021-12-05] MEDS: Aspirin Enteric Coated 81 MG Tablet PO SCH (08:08)
[2021-12-05] MEDS: Acetaminophen 325 MG TABLET PO SCH ×2 (08:08→20:26)
[2021-12-05] MEDS: gemfibroziL 600 MG TABLET PO SCH ×2 (08:09→16:40)
[2021-12-05] MEDS: *HR* Ticagrelor 90 MG TABLET PO SCH ×2 (08:09→20:26)
[2021-12-05] MEDS: Fluticasone Propionate Nasal 50 MCG/SPRAY BOTTLE NS SCH (08:12)
[2021-12-05] MEDS ORDERED: Perflutren Lipid Microsphere 1.3 ML in 0.9 % Sodium Chloride 8.7 ML IVP PRN (10:26)
[2021-12-05] MEDS ORDERED: Isovue-370 500 ML BOTTLE IVP ONE ×2 (12:08→12:11)
[2021-12-05] MEDS: Trolamine Salicylate/Aloe Vera 85 APPL/85 GM TUBE TP PRN (18:04)
[2021-12-06] MEDS: *HR* Enoxaparin 30 MG/0.3 ML SYRINGE SQ SCH (05:18)
[2021-12-06 07:52] LABS: Basophils # 0.1 K/mcL (0.0-0.2); Basophils % 0.8 %; Eosinophils # 0.3 K/mcL (0.0-0.6); Eosinophils % 5.4 %; Hemoglobin 13.6 g/dL (11.5-15.4); Immature Granulocytes % 0.8 % (0-4); Lymphocytes # 1.5 K/mcL (0.6-4.6); Mean Corpuscular HGB Conc 32.4 g/dL (31.6-35.5); Mean Corpuscular Hemoglobin 29.3 pg (28.0-33.3); Mean Corpuscular Volume 90.5 fL (83.0-100.0); Mean Platelet Volume 10.2 fL (9.4-12.4); Monocytes # 0.7 K/mcL (0.0-1.3); Monocytes % 11.6 %; Neutrophils # 3.4 K/mcL (1.6-8.9); Platelet Count 265 K/mcL (140-400); Red Blood Count 4.64 M/mcL (3.82-4.97); Red Cell Distribution Width 13.4 % (11.5-14.5); Segmented Neutrophils % 56.4 %; White Blood Count 6.1 K/mcL (4.3-11.1)
[2021-12-06 08:49] LABS: Calcium 9.5 mg/dL (8.6-10.3); Potassium 4.6 mEq/L (3.5-5.1)
[2021-12-06] MEDS: gemfibroziL 600 MG TABLET PO SCH ×2 (09:27→17:27)
[2021-12-06] MEDS: *HR* Ticagrelor 90 MG TABLET PO SCH ×2 (09:27→20:16)
[2021-12-06] MEDS: Aspirin Enteric Coated 81 MG Tablet PO SCH (09:27)
[2021-12-06] MEDS: Isosorbide MONOnitrate (24 HR) 30 MG TAB.ER.24H PO SCH (09:27)
[2021-12-06] MEDS: Acetaminophen 325 MG TABLET PO SCH ×2 (09:27→20:15)
[2021-12-06] MEDS: Fluticasone Propionate Nasal 50 MCG/SPRAY BOTTLE NS SCH (09:29)
[2021-12-07] MEDS: *HR* Enoxaparin 30 MG/0.3 ML SYRINGE SQ SCH (06:35)
[2021-12-07] MEDS: Isosorbide MONOnitrate (24 HR) 30 MG TAB.ER.24H PO SCH (08:56)
[2021-12-07] MEDS: Aspirin Enteric Coated 81 MG Tablet PO SCH (08:56)
[2021-12-07] MEDS: Acetaminophen 325 MG TABLET PO SCH ×2 (08:56→20:34)
[2021-12-07] MEDS: Fluticasone Propionate Nasal 50 MCG/SPRAY BOTTLE NS SCH (08:57)
[2021-12-07] MEDS: gemfibroziL 600 MG TABLET PO SCH ×2 (08:57→16:07)
[2021-12-07] MEDS: *HR* Ticagrelor 90 MG TABLET PO SCH ×2 (08:57→20:34)
[2021-12-07] MEDS: Trolamine Salicylate/Aloe Vera 85 APPL/85 GM TUBE TP PRN (16:41)
[2021-12-08 05:15] VITALS: O2SAT 93
[2021-12-08] MEDS: *HR* Enoxaparin 30 MG/0.3 ML SYRINGE SQ SCH (05:51)
[2021-12-08] MEDS: Fluticasone Propionate Nasal 50 MCG/SPRAY BOTTLE NS SCH (08:41)
[2021-12-08] MEDS: Aspirin Enteric Coated 81 MG Tablet PO SCH (08:41)
[2021-12-08] MEDS: Isosorbide MONOnitrate (24 HR) 30 MG TAB.ER.24H PO SCH (08:41)
[2021-12-08] MEDS: Acetaminophen 325 MG TABLET PO SCH (08:41)
[2021-12-08] MEDS: *HR* Ticagrelor 90 MG TABLET PO SCH (08:41)
[2021-12-08] MEDS: gemfibroziL 600 MG TABLET PO SCH (08:41)
[2021-12-08 11:08] VITALS: BP 134/83; PULSE 68; RESP 20; TEMP 98
== END 2021-12-08 12:45 | disposition home health service (06) ==
LOC: INPPIK 11:15 → EMEROOPIK 11:15 → SUATTDRO 15:45 → INPPIK 16:07
PROVIDERS: ADMIT Internal Medicine; ATTEND Family Medicine